=== PATIENT | male | born 1935 | race Caucasian/White ===

== ENCOUNTER → 2017-02-25 | Outpatient (CLI) | payer MEDICARE, OTHER ==
[~2017-02-25] MED LIST: INSLAN SQ; INSU100V31 SQ; LEVO75 PO; METO25 PO
== END | disposition home or self-care (01) ==
LOC: RADPV 15:22
PROVIDERS: ATTEND Legal Medicine
DX: J18.9 Pneumonia, unspecified organism (principal); I70.0 Atherosclerosis of aorta